=== PATIENT | female | born 1990 | race Two or more races ===

== ENCOUNTER 2016-10-18 18:32 | Emergency (ER) | payer MEDICAID ==
[~2016-10-18] VITALS: Ht 152.4 cm; Wt 64.0 kg
[2016-10-18] MEDS ORDERED: NKM (18:54)
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
[2016-10-18 19:15] VITALS: BP 120/78
[2016-10-18] MEDS ORDERED: Tetanus/Diptheria/Pertussis Vaccine 0.5ml Syr IM ONE (19:15)
[2016-10-18 20:15] VITALS: BP 128/70
[2016-10-18 20:20] VITALS: BP 128/70
--- NOTE | 2016-10-19 09:46 | Diagnostic Imaging Report ---
Indication: PAIN Technique: 3 views of the right shoulder Comparison: none Findings: No acute fractures. No dislocations. Joint spaces are preserved area Impression:Negative
--- NOTE | 2016-10-19 09:48 | Diagnostic Imaging Report ---
Indication: PAIN Technique: 3 views right hand Comparison: none Findings: No acute fractures. No dislocations. The joint spaces are preserved Impression: Negative
--- NOTE | 2016-10-19 09:50 | Diagnostic Imaging Report ---
Clinical Indication:PAIN Technique: 3 views of the right wrist Comparison: None Findings: No acute fractures. No dislocations. Joint spaces are preserved Impression: No acute process
== END 2016-10-18 20:30 | disposition home or self-care (01) ==
LOC: EMR 20:27
DX: M79.641 Pain in right hand (principal); M25.511 Pain in right shoulder; V03.99XA Pedestrian with other conveyance injured in collision with car, pick-up truck or van, unspecified whether traffic or nontraffic accident, initial encounter; Y92.89 Other specified places as the place of occurrence of the external cause; Z23 Encounter for immunization; J45.909 Unspecified asthma, uncomplicated; M25.531 Pain in right wrist
CPT/HCPCS: 90471; 90715; 99284